=== PATIENT | male | born 1970 | race Caucasian/White ===

== ENCOUNTER 2017-01-30 18:36 | Emergency (ER) | payer OTHER, BC ==
[2017-01-30] MEDS ORDERED: Acetaminophen/oxyCODONE 325-5 MG Tab PO ONE (20:01)
--- NOTE | 2017-01-30 20:20 | CT ---
Head CT Technique: Multiple axial sections through the brain were obtained. Intravenous contrast was not utilized. Comparison: No previous intracranial imaging. Findings: Ventricles along with basal cisterns and sulci over the convexities are within normal limits for the patient's age. No abnormal parenchymal densities are seen. No evidence of intracranial hemorrhage. No midline shift or mass effect is seen. Bone window settings were obtained which shows no acute calvarial abnormality. No acute calvarial abnormality is seen. Impression: 1. Nothing acute is appreciated on noncontrast head CT exam. Diagnostic code #1
--- NOTE | 2017-01-30 20:33 | EDM.PDOC ---
ED HPI GENERAL MEDICAL PROBLEM - General Chief Complaint: Back Pain or Injury Stated Complaint: fall right side pains Time Seen by Provider: 01/30/17 19:15 Source of Information: Reports: Patient History Limitations: Reports: No Limitations - History of Present Illness INITIAL COMMENTS - FREE TEXT/NARRATIVE: 46 year old male presents for evaluation and treatment of injuries sustained from a fall at work. Reportedly the fall occurred around 130 today. Patient reports he fell off of a truck, approximately 4 feet. Believes he landed on his right side of back and head. Currently complain of pain to the right anterior and lateral chest extending to his right back. Also complains of pain to the chest and back with sneezing, deep breathing, etc. Patient did not lose consciousness. Since the fall he has not had any syncopal episodes. He has had a headache and nausea. No vision changes, neck pain, lightheadedness, vomiting, shortness of breath, abdominal pain or pain in the extremities. Patient has been walking since the fall. He took 1200mg ibuprofen at 1530 and 3 aleve around 1815 tonight with little relief. Onset: Today Duration: Hour(s): (7) Right Back Pain Score (Numeric/FACES): 8 - Related Data Allergies Allergy/AdvReac Type Severity Reaction Status Date / Time No Known Allergies Allergy Verified 01/30/17 18:53 Home Meds: Home Meds Naltrexone 50 mg PO BEDTIME 01/11/14 [History] Omeprazole [Prilosec] 20 mg PO DAILY 01/11/14 [History] Acetaminophen/oxyCODONE [Percocet 325-5 MG] 1 tab PO Q6H PRN #20 tablet [Rx] buPROPion [Wellbutrin XL] 1 tab PO BEDTIME 01/30/17 [History] Past Medical History Musculoskeletal History: Reports: Fracture Neurological History: Reports: Concussion Psychiatric History: Reports: Addiction, Anxiety, Depression - Past Surgical History HEENT Surgical History: Reports: Adenoidectomy, Tonsillectomy GI Surgical History: Reports: Cholecystectomy Dermatological Surgical History: Reports: Skin Graft Social & Family History - Family History Family Medical History: Noncontributory - Tobacco Use Smoking Status *Q: Current Every Day Smoker Years of Tobacco use: 26 Packs/Tins Daily: 0.7 - Recreational Drug Use Recreational Drug Use: No ED ROS GENERAL - Review of Systems Review Of Systems: See Below HEENT: Denies: Vision Change Respiratory: Reports: Other (pain with deep breathing). Denies: Shortness of Breath Cardiovascular: Reports: Chest Pain (right anterior and lateral chest extending to the right back) GI/Abdominal: Reports: Nausea (earlier). Denies: Abdominal Pain : Denies: Hematuria Musculoskeletal: Reports: Back Pain (mid back). Denies: Neck Pain, Arm Pain, Leg Pain Skin: Denies: Bruising, Wound Neurological: Reports: Headache. Denies: Dizziness, Numbness, Syncope, Tingling ED EXAM, UPPER BACK/NECK PAIN - Physical Exam Exam: See Below Exam Limited By: No Limitations General Appearance: Alert, WD/WN, No Apparent Distress Eye Exam: Bilateral Eye: EOMI, Normal Inspection, PERRL Ears Exam: Normal External Exam Nose Exam: Normal Inspection Throat/Mouth Exam: Normal Inspection, Normal Lips, Normal Oropharynx, Normal Voice, No Airway Compromise Head Exam: Atraumatic, Normocephalic Neck Exam: Non-Tender, Full Range of Motion, Normal Alignment, Normal Inspection Nexus Criteria: No: Posterior, Midline Cervical Tenderness, Evidence of Intoxication, Altered Level of Consciousness, Focal Neurological Deficit, Painful Distraction Injuries Cardiovascular/Respiratory: Regular Rate, Rhythm, No M/R/G, Normal Peripheral Pulses, Normal Breath Sounds, No Respiratory Distress, Other (tenderness to the right anterior lateral chset ribs 4-10) GI/Abdominal: Normal Bowel Sounds, Soft, Non-Tender, No Distention Back Exam: Normal Inspection, Paraspinal Tenderness (right sided paraspinal pain T4-T10). No: Vertebral Tenderness Extremities: Normal Inspection, Normal Range of Motion, Non-Tender Neurologic: Alert, Normal Mood/Affect Psychiatric: Normal Affect Skin Exam: Normal Color, Warm/Dry Course - Vital Signs Last Recorded V/S: Last Vital Signs Temp Pulse 93 01/30/17 18:48 Resp 18 01/30/17 18:48 BP 146/87 H 01/30/17 18:48 Pulse Ox 97 01/30/17 18:48 - Orders/Labs/Meds Meds: Medications Discontinued Medications Generic Name Dose Route Start Last Admin Trade Name Freq PRN Reason Stop Dose Admin Oxycodone/Acetaminophen 1 tab 01/30/17 20:01 01/30/17 20:08 Percocet 325-5 Mg PO 01/30/17 20:02 1 tab ONETIME ONE Administration - Radiology Interpretation Free Text/Narrative:: Head CT Technique: Multiple axial sections through the brain were obtained. Intravenous contrast was not utilized. Comparison: No previous intracranial imaging. Findings: Ventricles along with basal cisterns and sulci over the convexities are within normal limits for the patient's age. No abnormal parenchymal densities are seen. No evidence of intracranial hemorrhage. No midline shift or mass effect is seen. Bone window settings were obtained which shows no acute calvarial abnormality. No acute calvarial abnormality is seen. Impression: 1. Nothing acute is appreciated on noncontrast head CT exam. xray of the throacic spine shows no acute fractures or dislocations. xray of the chest and right ribs shows no acute intrathoracic process. Displaced rib fracture of rib 5 on the right. - Re-Assessments/Exams Free Text/Narrative Re-Assessment/Exam: 01/30/17 20:30 I reviewed the imaging results with the patient. Rib fracture to rib 5, possibly 1 or 2 more discrete rib fractures. Patient works a physically demanding job. Note given for work. Discharge instructions as documented. Departure - Departure Time of Disposition: 20:40 Disposition: Home, Self-Care 01 Condition: Fair Clinical Impression: Closed rib fracture - Discharge Information Prescriptions: Acetaminophen/oxyCODONE [Percocet 325-5 MG] 1 tab PO Q6H PRN #20 tablet PRN Reason: Pain Instructions: Rib Fracture Referrals: Williams Chapa MD [Primary Care Provider] - Celio Bajwa MD [Physician] - Forms: ED Department Discharge, ED Return to Work/School Form Additional Instructions: Percocet 1-2 tabs every 4-6 hours as needed for pain. Do not drive or operate machinery within 12 hours of taking Percocet. Percocet can be habit-forming, recommend you take as few of these as needed to control your pain. You were given medication in the ER that can affect your ability to drive and operate machinery. Do not drive or operate machinery and 12 hours of taking prescription narcotic pain medication. Ice or heat to the sore areas. Follow-up with occupational health in [address] Bajwa. Please call [phone] to schedule with him. Note given for work. Recommend 3-5 days off followed by light duty until cleared by occ. health return to full duty. Please return the ER if your symptoms change or worsen.
--- NOTE | 2017-01-31 07:18 | CR ---
Thoracic spine: AP, lateral and swimmer's views of the thoracic spine were obtained. Comparison: No prior study. Mild scoliosis is noted. Mild disc space narrowing is noted within the mid and lower thoracic spine. Mild scattered endplate osteophytes are seen. No acute compression deformity is appreciated. Pedicles are intact. No abnormal subluxation is seen. Impression: 1. Mild scoliosis and mild degenerative change. 2. No acute abnormality is appreciated on three-view thoracic spine exam. Diagnostic code #2
--- NOTE | 2017-01-31 07:18 | CR ---
Chest and right ribs: Frontal view of the chest was obtained as well as three views of the right ribs. Comparison: No previous study. Slight atelectasis is noted within the left lung base. Mildly displaced fracture is identified within the right fifth rib. Nondisplaced fracture is identified within the ninth rib. No additional fracture or other right sided rib abnormality is seen. Heart size and mediastinum are normal. No pneumothorax is appreciated at this time. Impression: 1. Etl-[id number]-ppist rib fractures as described above. 2. Nothing acute is otherwise seen on accompanying frontal chest x-ray. Diagnostic code #3
== END 2017-01-30 20:53 | disposition home or self-care (01) ==
LOC: JD.ED 18:36
DX: S22.31XA Fracture of one rib, right side, initial encounter for closed fracture (principal); Z79.899 Other long term (current) drug therapy; F17.210 Nicotine dependence, cigarettes, uncomplicated; W17.89XA Other fall from one level to another, initial encounter
CPT/HCPCS: 70450; 71101; 72070; 99284; A9270

== ENCOUNTER 2019-07-14 17:01 | Emergency (ER) | payer BC ==
--- NOTE | 2019-07-14 18:23 | EDM.PDOC ---
ED HPI GENERAL MEDICAL PROBLEM - General Chief Complaint: Chest Pain Stated Complaint: CHEST PAIN Time Seen by Provider: 07/14/19 17:35 Source of Information: Reports: Patient, RN Notes Reviewed History Limitations: Reports: No Limitations - History of Present Illness INITIAL COMMENTS - FREE TEXT/NARRATIVE: Patient is a 49-year-old male who presents to the ED for evaluation of his chest pain. Patient notes that around 4:45 PM, he was sitting on his couch watching TV at home when he developed a sudden sharp central chest pain. He notes that the pain seemed to radiate to his back, and down his left arm. He did note some mild nausea with this. He was not diaphoretic at this time. Patient denies any previous cardiac history except for hypertension. He does note a history of GERD, and he takes Prilosec for this. He did not take any sort of pain medications for the chest pain before coming here. Patient's vitals are stable at triage. Patient states he is not felt a pain like this before ever. He denies any other sick-like symptoms, fever/chills, cough/ shortness of breath. His primary care provider is Dr. Wong. Patient does say that he is a smoker, smokes around 1 pack a day for the last 30 years. He denies any alcohol or drug use, and does have coffee and soda on a daily basis. Chest Pain Score (Numeric/FACES): 8 - Related Data Allergies Allergy/AdvReac Type Severity Reaction Status Date / Time No Known Allergies Allergy Verified 07/14/19 17:13 Home Meds: Home Meds Naltrexone 50 mg PO BEDTIME 01/11/14 [History] Omeprazole [Prilosec] 20 mg PO DAILY 01/11/14 [History] buPROPion [Wellbutrin XL] 1 tab PO BEDTIME 01/30/17 [History] Past Medical History Cardiovascular History: Reports: Hypertension Gastrointestinal History: Reports: GERD Musculoskeletal History: Reports: Fracture Neurological History: Reports: Concussion Psychiatric History: Reports: Addiction, Anxiety, Depression - Past Surgical History HEENT Surgical History: Reports: Adenoidectomy, Tonsillectomy GI Surgical History: Reports: Cholecystectomy Dermatological Surgical History: Reports: Skin Graft Social & Family History - Family History Family Medical History: Noncontributory - Tobacco Use Smoking Status *Q: Current Every Day Smoker Years of Tobacco use: 30 Packs/Tins Daily: 1 - Caffeine Use Caffeine Use: Reports: Soda - Recreational Drug Use Recreational Drug Use: No ED ROS GENERAL - Review of Systems Review Of Systems: Comprehensive ROS is negative, except as noted in HPI. ED EXAM, GENERAL - Physical Exam Exam: See Below Exam Limited By: No Limitations General Appearance: Alert, WD/WN, No Apparent Distress Eye Exam: Bilateral Eye: Normal Inspection Ears: Normal External Exam Nose: Normal Inspection Throat/Mouth: Normal Inspection Head: Atraumatic, Normocephalic Neck: Normal Inspection Respiratory/Chest: No Respiratory Distress, Lungs Clear, Normal Breath Sounds, No Accessory Muscle Use, Chest Non-Tender Cardiovascular: Normal Peripheral Pulses, Regular Rate, Rhythm, No Edema, No Murmur Peripheral Pulses: 3+: Radial (L), Radial (R) GI/Abdominal: Normal Bowel Sounds, Soft, Non-Tender, No Distention, No Mass Extremities: Normal Inspection, Normal Capillary Refill Neurological: Alert, Oriented, Normal Cognition, No Motor/Sensory Deficits Psychiatric: Normal Affect, Normal Mood Skin Exam: Warm, Dry, Intact, Normal Color, No Rash EKG INTERPRETATION EKG Date: 07/14/19 Time: 17:03 Rhythm: NSR Rate (Beats/Min): 70 Wittmann: Normal P-Wave: Present QRS: Normal ST-T: Normal QT: Normal Comparison: NA - No Prior EKG EKG Interpretation Comments: No obvious ischemia or acute ST changes noted, reviewed by myself and Dr. Montemayor. Course - Vital Signs Last Recorded V/S: Last Vital Signs Temp 97.3 F 07/14/19 17:08 Pulse 74 07/14/19 17:08 Resp 16 07/14/19 17:08 BP 157/100 H 07/14/19 17:08 Pulse Ox 100 07/14/19 17:08 - Orders/Labs/Meds Orders: Active Orders 24 hr Category Date Time Status Chest 2V [CR] Stat Exams 07/14/19 17:34 Taken Labs: Laboratory Tests 07/14/19 07/14/19 07/14/19 Range/Units 17:15 17:15 17:15 WBC 9.14 H (4.23-9.07) K/mm3 RBC 5.08 (4.63-6.08) M/mm3 Hgb 16.3 (13.7-17.5) gm/dl Hct 47.4 (40.1-51.0) % MCV 93.3 H (79.0-92.2) fl MCH 32.1 (25.7-32.2) pg MCHC 34.4 (32.2-35.5) g/dl RDW Std Deviation 44.5 H (35.1-43.9) fL Plt Count 327 (163-337) K/mm3 MPV 10.6 (9.4-12.3) fl Neutrophils % (Manual) 55 (40-60) % Band Neutrophils % 0 (0-10) % Lymphocytes % (Manual) 32 (20-40) % Atypical Lymphs % 0 % Monocytes % (Manual) 7 (2-10) % Eosinophils % (Manual) 6 (0.8-7.0) % Basophils % (Manual) 0 L (0.2-1.2) Platelet Estimate Adequate RBC Morph Comment Normal PT 10.4 (9.7-12.0) SECONDS INR 0.95 APTT 27 (22-31) SECONDS Sodium 138 (136-145) mEq/L Potassium 4.4 (3.5-5.1) mEq/L Chloride 102 (98-107) mEq/L Carbon Dioxide 28 (21-32) mEq/L Anion Gap 12.4 (5-15) BUN 15 (7-18) mg/dL Creatinine 1.2 (0.7-1.3) mg/dL Est Cr Clr Drug Dosing 68.85 mL/min Estimated GFR (MDRD) > 60 (>60) mL/min BUN/Creatinine Ratio 12.5 L (14-18) Glucose 109 H (74-106) mg/dL Calcium 9.2 (8.5-10.1) mg/dL Magnesium 2.2 (1.8-2.4) mg/dl Total Bilirubin 0.3 (0.2-1.0) mg/dL AST 28 (15-37) U/L ALT 74 H (16-63) U/L Alkaline Phosphatase 75 (46-116) U/L Troponin I < 0.017 (0.00-0.056) ng/mL NT-Pro-B Natriuret Pep (0-125) pg/mL Total Protein 8.1 (6.4-8.2) g/dl Albumin 4.3 (3.4-5.0) g/dl Globulin 3.8 gm/dL Albumin/Globulin Ratio 1.1 (1-2) 05/17/20 Range/Units 17:15 WBC (4.23-9.07) K/mm3 RBC (4.63-6.08) M/mm3 Hgb (13.7-17.5) gm/dl Hct (40.1-51.0) % MCV (79.0-92.2) fl MCH (25.7-32.2) pg MCHC (32.2-35.5) g/dl RDW Std Deviation (35.1-43.9) fL Plt Count (163-337) K/mm3 MPV (9.4-12.3) fl Neutrophils % (Manual) (40-60) % Band Neutrophils % (0-10) % Lymphocytes % (Manual) (20-40) % Atypical Lymphs % % Monocytes % (Manual) (2-10) % Eosinophils % (Manual) (0.8-7.0) % Basophils % (Manual) (0.2-1.2) Platelet Estimate RBC Morph Comment PT (9.7-12.0) SECONDS INR APTT (22-31) SECONDS Sodium (136-145) mEq/L Potassium (3.5-5.1) mEq/L Chloride (98-107) mEq/L Carbon Dioxide (21-32) mEq/L Anion Gap (5-15) BUN (7-18) mg/dL Creatinine (0.7-1.3) mg/dL Est Cr Clr Drug Dosing mL/min Estimated GFR (MDRD) (>60) mL/min BUN/Creatinine Ratio (14-18) Glucose (74-106) mg/dL Calcium (8.5-10.1) mg/dL Magnesium (1.8-2.4) mg/dl Total Bilirubin (0.2-1.0) mg/dL AST (15-37) U/L ALT (16-63) U/L Alkaline Phosphatase (46-116) U/L Troponin I (0.00-0.056) ng/mL NT-Pro-B Natriuret Pep 15 (0-125) pg/mL Total Protein (6.4-8.2) g/dl Albumin (3.4-5.0) g/dl Globulin gm/dL Albumin/Globulin Ratio (1-2) - Re-Assessments/Exams Free Text/Narrative Re-Assessment/Exam: 07/14/19 18:22 Patient presents to the ED for evaluation of a chest pain, EKG was obtained at time of triage, we will get baseline labs and a chest x-ray for evaluation of the patient's chest pain. 07/14/19 18:25 Patient's laboratory evaluation has come back and everything is within normal limits, troponin is negative at today's visit. We will likely have the patient follow-up with his primary care provider for the possibility of a cardiac stress test for further evaluation and management. Patient will be discharged home with general recommendations at this time. Departure - Departure Time of Disposition: 18:26 Disposition: Home, Self-Care 01 Condition: Good Clinical Impression: Atypical chest pain Instructions: Nonspecific Chest Pain, Adult, [id number] Referrals: Williams Chapa MD [Primary Care Provider] - Forms: ED Department Discharge Additional Instructions: You were evaluated in the ER today regarding your atypical chest pain. You had some laboratory evaluation done, chest x-ray and EKG, everything seems to be within normal limits. You are not suffering from any sort of heart attack at today's visit, and there is no sign of a consolidative process like pneumonia on your chest x-ray. Etiology of your chest pain is somewhat unknown at today's visit. Highly recommend you follow-up with your regular care provider and talk about getting an outpatient cardiac stress test for further evaluation of your chest pain. Please return to the ER at any time if symptoms change or worsen. Sepsis Event Note - Evaluation Sepsis Screening Result: No Definite Risk - Focused Exam Vital Signs: Vital Signs Temp Pulse Resp BP Pulse Ox 07/14/19 17:08 97.3 F 74 16 157/100 H 100 Date Exam was Performed: 07/14/19 Time Exam was Performed: 18:25 - My Orders Last 24 Hours: My Active Orders 07/14/19 17:34 Chest 2V [CR] Stat - Assessment/Plan Last 24 Hours: My Active Orders 07/14/19 17:34 Chest 2V [CR] Stat
--- NOTE | 2019-07-15 09:28 | CR ---
Chest: 2 views of the chest were obtained. Comparison: Prior chest x-ray of 01/30/17. Old healed right-sided rib fractures are noted with callus. No acute osseous finding is appreciated. Heart size and mediastinum are normal. Lungs are clear with no acute parenchymal change. Impression: 1. Nothing acute is appreciated on 2 view chest x-ray. Diagnostic code #1 This report was dictated in MDT
== END 2019-07-14 18:42 | disposition home or self-care (01) ==
LOC: JD.ED 17:01
DX: R07.89 Other chest pain (principal); I10 Essential (primary) hypertension; K21.9 Gastro-esophageal reflux disease without esophagitis; F41.9 Anxiety disorder, unspecified; F17.210 Nicotine dependence, cigarettes, uncomplicated; F32.9 Major depressive disorder, single episode, unspecified; Z79.899 Other long term (current) drug therapy
CPT/HCPCS: 36415; 71046; 71046-26; 80053; 83735; 83880; 84484; 85007; 85027; 85610; 85730; 93005; 93010; 99283; 99285-25